=== PATIENT | female | born 1950 | race Caucasian/White ===

== ENCOUNTER 2018-01-03 18:50 | Inpatient (IN) | payer MEDICAID, OTHER ==
[2018-01-03] MEDS ORDERED: NS 1,000 ML IV ONE ×3 (18:58→21:41)
--- NOTE | 2018-01-03 18:59 | EDPHY ---
H & P Time Seen by Provider: 01/03/18 18:59 HPI/ROS: HPI CHIEF COMPLAINT: Possible urinary tract infection HISTORY OF PRESENT ILLNESS: Patient is a 67-year-old female presents emergency room by EMS for concern for sepsis and urinary tract infection. She had blood work at her care facility and was noted to have a high white blood cell count concern for UTI. She presents emergency room with a fever to 100.9. Blood pressures in route that was 70s over 40s. The patient here denies any complaints. Past Medical History: Thyroid disease, breast CA, MS Past Surgical History: No recent surgery Social History: Resides at a care facility Family History: Noncontributory ROS REVIEW OF SYSTEMS: 10 Systems were reviewed and negative with the exception of the elements mentioned in the history of present illness. Exam Constitutional nontoxic triage nursing summary reviewed, vital signs reviewed, awake/alert. Eyes normal conjunctivae and sclera, EOMI, PERRLA. HENT normal inspection, atraumatic, moist mucus membranes, no epistaxis, neck supple/ no meningismus, no raccoon eyes. Respiratory clear to auscultation bilaterally, normal breath sounds, no respiratory distress, no wheezing. Cardiovascular rate normal, regular rhythm, no murmur, no edema, distal pulses normal. Gastrointestinal soft, non-tender, no rebound, no guarding, normal bowel sounds, no distension, no pulsatile mass. Genitourinary no CVA tenderness. Musculoskeletal no midline vertebral tenderness, full range of motion, no calf swelling, no tenderness of extremities, no meningismus, good pulses, neurovascularly intact. Skin pink, warm, & dry, no rash, skin atraumatic. Neurologic awake, alert and oriented x 3, AAOx3, moves all 4 extremities equally, motor intact, sensory intact, CN II-XII intact, normal cerebellar, normal vision, normal speech. Psychiatric normal mood/affect. Heme/Lymph/Immune no lymphadenopathy. Differential Diagnosis: Includes but is not limited to in a particular order dehydration, sepsis, UTI with sepsis, bacteremia, hypotension, septic shock Medical Decision Making: Plan for this patient IV establishment IV fluid bolus , full youth nutritional monitor, check UA, blood cultures, lactic acid, IV fluid bolus. Re-evaluation: 2001: Given this patient's elevated white blood cell count, fever, urinalysis which was a cath urine shows UTI, , and low blood pressure this concerning for sepsis. She has been aggressively hydrated with 2 L of fluid. Additionally urine cultures been sent, blood culture sent. Lactic acid 2. IV Rocephin. Patient need to be admitted the hospital. 2111: Spoke with the hospitalist service Dr. Méndez, agrees to admit the patient. Patient is hemodynamically stable here her blood pressures been close to 90 systolic with normal maps. She is not trended down. This time she does not need vasopressor support. She has received 2 L of fluid. Her lactic acid is 2 and under. Rocephin is given for UTI. Urine culture and blood culture sent. Patient has been ordered a 3rd L fluid do her blood pressure being 88/51. She has advance directives with her that says comfort measures only. Even though I discussed about central line placement for possible vasopressor support for blood pressure gets worse however she does not want a central line. I discussed this at length with her. Will give her 3rd L fluid and re-evaluate her. I have updated the hospitalist service Dr. Méndez, patient declines central line. Source: Patient, EMS Constitutional: Initial Vital Signs Temperature (C) 38.3 C 01/03/18 19:01 Heart Rate 76 01/03/18 19:01 Respiratory Rate 12 01/03/18 19:01 Blood Pressure 80/62 L 01/03/18 19:01 O2 Sat (%) 98 01/03/18 19:01 O2 Delivery Mode Nasal Cannula O2 (L/minute) 3 Allergies/Adverse Reactions: Penicillins Allergy (Verified 12/06/10 12:11) povidone-iodine [From Betadine] Allergy (Verified 01/03/18 19:09) soap [From Betadine] Allergy (Verified 01/03/18 19:09) Home Medications: Medication Instructions Recorded Acetaminophen [Tylenol 325mg (*)] 650 mg PO Q6 PRN 01/03/18 Albuterol Sulfate [ALBUTEROL 1.25 mg IH Q6 PRN 01/03/18 SULFATE 1.25 MG/3 ML] Ascorbic Acid [Vitamin C 500 mg 500 mg PO DAILY 01/03/18 (*)] Bisacodyl [Dulcolax] 10 mg RC DAILY PRN 01/03/18 Brimonidine Tartrate [Brimonidine 1 drop EACHEYE BID 01/03/18 Tartrate] Butt Paste 1 applic TP TID 01/03/18 Docusate Sodium [Colace 100 MG (*)] 100 mg PO DAILY 01/03/18 Donepezil HCl [Aricept] 10 mg PO DAILY 01/03/18 Hydrocortisone 2.5% 1 hitesh TP BID PRN 01/03/18 [Hydrocortisone 2.5% cream (*)] Levothyroxine [Synthroid 75 mcg 75 mcg PO DAILY06 01/03/18 (*)] Magnesium Hydroxide [Milk of 30 ml PO DAILY PRN 01/03/18 Magnesia] Multivitamins [Multivitamin (*)] 1 each PO DAILY 01/03/18 Sennosides/Docusate Sodium 1 each PO DAILY 01/03/18 [Senna-S Tablet] Sod Phos,M-B/Na Phos,Di-Ba [Fleet 133 ml RC DAILY PRN 01/03/18 Enema] Timolol Maleate [Timolol Maleate] 1 drop EACHEYE BID 01/03/18 Travoprost [Travatan Z] 1 drop EACHEYE HS 01/03/18 guaiFENesin [Mucinex 600 MG (*)] 600 mg PO Q12 PRN 01/03/18 levOFLOXACIN [levAQUIN (*)] 750 mg PO DAILY 01/03/18 tiZANidine HCL [Zanaflex] 4 mg PO TID 01/03/18 Medical Decision Making - Data Points Laboratory Results: Laboratory Results 01/03/18 18:50 01/03/18 18:58 Microbiology Results: MICROBIOLOGY 01/03/18 19:33 Urine,Clean Catch Urine Culture - Preliminary Gram Neg Christian Nonlactose Ferm. 01/03/18 19:46 Blood Blood Culture - Preliminary Gram Negative Christian 01/03/18 19:10 Blood Blood Culture - Preliminary Gram Negative Christian 01/03/18 19:10 Blood Blood Panel (PCR) - Final Proteus Species Medications Given: Acetaminophen (Tylenol) 650 mg PO Q4HRS PRN PRN Reason: Pain, Mild/Fever, Can Take PO Stop: 07/02/18 22:43 Last Admin: 01/04/18 00:39 Dose: 650 mg Docusate Sodium (Colace) 100 mg PO DAILY JAMSHID Stop: 07/03/18 08:59 Last Admin: 01/04/18 09:09 Dose: Not Given Enoxaparin Sodium (Lovenox) 40 mg SC DAILY [facility] Stop: 07/03/18 08:59 Last Admin: 01/04/18 09:06 Dose: Not Given Levothyroxine Sodium (Synthroid) 75 mcg PO DAILY06 [facility] Stop: 07/03/18 05:59 Last Admin: 01/04/18 06:24 Dose: 75 mcg Miscellaneous Medication (Butt Paste) 1 applic TP TID [facility] Stop: 07/03/18 08:59 Last Admin: 01/04/18 15:32 Dose: Not Given Senna/Docusate Sodium (Senokot-S) 1 tab PO DAILY [facility] Stop: 07/03/18 08:59 Last Admin: 01/04/18 09:08 Dose: 1 tab Timolol Maleate (Timoptic 0.5%) 1 drops EACHEYE BID [facility] Stop: 07/03/18 08:59 Last Admin: 01/04/18 09:03 Dose: 1 drop Tizanidine HCl (Zanaflex) 4 mg PO TID [facility] Stop: 07/03/18 08:59 Last Admin: 01/04/18 15:22 Dose: 4 mg Discontinued Medications Brimonidine Tartrate (Alphagan 0.2%) 1 drops EACHEYE BID [facility] Stop: 07/03/18 08:59 Last Admin: 01/04/18 09:02 Dose: Not Given Donepezil HCl (Aricept) 10 mg PO DAILY [facility] Stop: 07/03/18 08:59 Last Admin: 01/04/18 09:07 Dose: Not Given Sodium Chloride (Ns) 1,000 mls @ 0 mls/hr IV EDNOW ONE; Wide Open PRN Reason: Protocol Stop: 01/03/18 18:59 Last Admin: 01/03/18 19:09 Dose: 1,000 mls Sodium Chloride (Ns) 1,000 mls @ 0 mls/hr IV ONCE ONE PRN Reason: Wide Open Stop: 01/03/18 19:17 Last Admin: 01/03/18 19:51 Dose: 1,000 mls Ceftriaxone Sodium/Dextrose (Rocephin 1 Gm (Premix)) 50 mls @ 100 mls/hr IV EDNOW ONE PRN Reason: Protocol Stop: 01/03/18 20:28 Last Admin: 01/03/18 20:06 Dose: 50 mls Sodium Chloride (Ns) 1,000 mls @ 0 mls/hr IV ONCE ONE PRN Reason: Wide Open Stop: 01/03/18 21:42 Last Admin: 01/03/18 21:47 Dose: 1,000 mls Sodium Chloride (Ns) 1,000 mls @ 150 mls/hr IV CONT JAMSHID Stop: 07/02/18 22:44 Last Admin: 01/04/18 05:33 Dose: 1,000 mls Departure - Departure Disposition: [facility] Inpatient Acute Clinical Impression: UTI (urinary tract infection) Qualifiers: Urinary tract infection type: acute cystitis Hematuria presence: with hematuria Qualified Code(s): N30.01 - Acute cystitis with hematuria Condition: Fair
[2018-01-03 19:19] LABS: PLATELET COUNT 161 10^3/uL (150-400)
[2018-01-03 19:24] LABS: INR 1.19 (0.83-1.16); PROTIME(PATIENT) 15.3 SEC (12.0-15.0)
[2018-01-03] MEDS ORDERED: ONDANSETRON DISINTEGRATING 4 MG TAB PO PRN (22:44)
[2018-01-03] MEDS ORDERED: ONDANSETRON 4 MG/2 ML VIAL IVP PRN (22:44)
--- NOTE | 2018-01-03 22:47 | PDGENHP ---
History and Physical - Chief Complaint suspected UTI - History of Present Illness 67 yo female with h/o MS, who is wheelchair bound and lives at [facility] presents to ED via EMS due to concern for UTI and sepsis. She denies fevers, but notes chills. She denies urinary symptoms such as dysuria, frequency or urgency, noting she is incontinent. No abdominal pain, back pain, nausea or vomiting. She denies CP, SOB or cough. In the ED, she met criteria for sepsis and UA suspicious for UTI. She received NS fluid bolus and IV Ceftriaxone. She is admitted for further management. History Information - Allergies/Home Medication List Allergies/Adverse Reactions: Penicillins Allergy (Verified 12/06/10 12:11) povidone-iodine [From Betadine] Allergy (Verified 01/03/18 19:09) soap [From Betadine] Allergy (Verified 01/03/18 19:09) Home Medications: Acetaminophen [Tylenol 325mg (*)] 650 mg PO Q6 PRN 01/03/18 [Last Taken Unknown] Albuterol Sulfate [ALBUTEROL SULFATE 1.25 MG/3 ML] 1.25 mg IH Q6 PRN 01/03/18 [ Last Taken Unknown] Ascorbic Acid [Vitamin C 500 mg (*)] 500 mg PO DAILY 01/03/18 [Last Taken Unknown] Bisacodyl [Dulcolax] 10 mg RC DAILY PRN 01/03/18 [Last Taken Unknown] Brimonidine Tartrate [Brimonidine Tartrate] 1 drop EACHEYE BID 01/03/18 [Last Taken Unknown] Butt Paste 1 applic TP TID 01/03/18 [Last Taken Unknown] Docusate Sodium [Colace 100 MG (*)] 100 mg PO DAILY 01/03/18 [Last Taken Unknown ] Donepezil HCl [Aricept] 10 mg PO DAILY 01/03/18 [Last Taken Unknown] Hydrocortisone 2.5% [Hydrocortisone 2.5% cream (*)] 1 hitesh TP BID PRN 01/03/18 [ Last Taken Unknown] Levothyroxine [Synthroid 75 mcg (*)] 75 mcg PO DAILY06 01/03/18 [Last Taken Unknown] Magnesium Hydroxide [Milk of Magnesia] 30 ml PO DAILY PRN 01/03/18 [Last Taken Unknown] Multivitamins [Multivitamin (*)] 1 each PO DAILY 01/03/18 [Last Taken Unknown] Sennosides/Docusate Sodium [Senna-S Tablet] 1 each PO DAILY 01/03/18 [Last Taken Unknown] Sod Phos,M-B/Na Phos,Di-Ba [Fleet Enema] 133 ml RC DAILY PRN 01/03/18 [Last Taken Unknown] Timolol Maleate [Timolol Maleate] 1 drop EACHEYE BID 01/03/18 [Last Taken Unknown] Travoprost [Travatan Z] 1 drop EACHEYE HS 01/03/18 [Last Taken Unknown] guaiFENesin [Mucinex 600 MG (*)] 600 mg PO Q12 PRN 01/03/18 [Last Taken Unknown] levOFLOXACIN [levAQUIN (*)] 750 mg PO DAILY 01/03/18 [Last Taken 01/03/18] tiZANidine HCL [Zanaflex] 4 mg PO TID 01/03/18 [Last Taken Unknown] I have personally reviewed and updated: family history, medical history, social history, surgical history - Past Medical History Additional medical history: MS, wheelchair bound. Hypothyroidism - Surgical History Reports: no pertinent surgical hx - Family History Positive for: non-pertinent - Social History Smoking Status: Former smoker Alcohol Use: None Drug Use: None Additional social history: Lives at [facility]. MOLST form states DNR / comfort. Review of Systems Review of Systems: ROS: 10pt was reviewed & negative except for what was stated in HPI & below Physical Exam Physical Exam: Temp Pulse Resp BP Pulse Ox 38.3 C 119 H 18 88/51 L 98 01/03/18 19:01 01/03/18 22:32 01/03/18 22:32 01/03/18 22:32 01/03/18 22:32 O2 (L/minute) 3 Constitutional: no apparent distress Eyes: PERRL Ears, Nose, Mouth, Throat: moist mucous membranes Cardiovascular: regular rate and rhythym, no murmur, rub, or gallop Respiratory: no respiratory distress, clear to auscultation Gastrointestinal: normoactive bowel sounds, soft, non-tender abdomen Skin: warm Musculoskeletal: generalized weakness Neurologic: AAOx3 Psychiatric: interacting appropriately Lab Data & Imaging Review 01/03/18 18:50 01/03/18 18:58 WBC 14.55 10^3/uL (3.80-9.50) H 01/03/18 18:50 RBC 4.27 10^6/uL (4.18-5.33) 01/03/18 18:50 Hgb 12.7 g/dL (12.6-16.3) 01/03/18 18:50 Hct 38.6 % (38.0-47.0) 01/03/18 18:50 MCV 90.4 fL (81.5-99.8) 01/03/18 18:50 MCH 29.7 pg (27.9-34.1) 01/03/18 18:50 MCHC 32.9 g/dL (32.4-36.7) 01/03/18 18:50 RDW 13.8 % (11.5-15.2) 01/03/18 18:50 Plt Count 161 10^3/uL (150-400) 01/03/18 18:50 MPV 10.6 fL (8.7-11.7) 01/03/18 18:50 Neut % (Auto) 92.6 % (39.3-74.2) H 01/03/18 18:50 Lymph % (Auto) 2.7 % (15.0-45.0) L 01/03/18 18:50 [place] % (Auto) 4.1 % (4.5-13.0) L 01/03/18 18:50 Eos % (Auto) 0.0 % (0.6-7.6) L 01/03/18 18:50 Baso % (Auto) 0.1 % (0.3-1.7) L 01/03/18 18:50 Nucleat RBC Rel Count 0.0 % (0.0-0.2) 01/03/18 18:50 Absolute Neuts (auto) 13.47 10^3/uL (1.70-6.50) H 01/03/18 18:50 Absolute Lymphs (auto) 0.39 10^3/uL (1.00-3.00) L 01/03/18 18:50 Absolute Monos (auto) 0.59 10^3/uL (0.30-0.80) 01/03/18 18:50 Absolute Eos (auto) 0.00 10^3/uL (0.03-0.40) L 01/03/18 18:50 Absolute Basos (auto) 0.02 10^3/uL (0.02-0.10) 01/03/18 18:50 Absolute Nucleated RBC 0.00 10^3/uL (0-0.01) 01/03/18 18:50 Immature Gran % 0.5 % (0.0-1.1) 01/03/18 18:50 Immature Gran # 0.08 10^3/uL (0.00-0.10) 01/03/18 18:50 Platelet Estimate ADEQUATE (ADEQ) 01/03/18 18:50 PT 15.3 SEC (12.0-15.0) H 01/03/18 18:50 INR 1.19 (0.83-1.16) H 01/03/18 18:50 APTT 28.4 SEC (23.0-38.0) 01/03/18 18:50 VBG Lactic Acid 2.0 mmol/L (0.7-2.1) 01/03/18 18:50 Sodium 136 mEq/L (135-145) 01/03/18 18:58 Potassium 4.3 mEq/L (3.3-5.0) 01/03/18 18:58 Chloride 101 mEq/L (97-110) 01/03/18 18:58 Carbon Dioxide 25 mEq/l (22-31) 01/03/18 18:58 Anion Gap 10 mEq/L (8-16) 01/03/18 18:58 BUN 34 mg/dL (7-23) H 01/03/18 18:58 Creatinine 1.3 mg/dL (0.6-1.0) H 01/03/18 18:58 Estimated GFR 41 01/03/18 18:58 Glucose 106 mg/dL (70-100) H 01/03/18 18:58 Calcium 9.0 mg/dL (8.5-10.4) 01/03/18 18:58 Magnesium 2.1 mg/dL (1.6-2.3) 01/03/18 18:58 Total Bilirubin 0.5 mg/dL (0.1-1.4) 01/03/18 18:58 Conjugated Bilirubin 0.2 mg/dL (0.0-0.5) 01/03/18 18:58 Unconjugated Bilirubin 0.3 mg/dL (0.0-1.1) 01/03/18 18:58 AST 44 IU/L (14-46) 01/03/18 18:58 ALT 42 IU/L (9-52) 01/03/18 18:58 Alkaline Phosphatase 149 IU/L (38-126) H 01/03/18 18:58 Total Protein 6.1 g/dL (6.3-8.2) L 01/03/18 18:58 Albumin 3.2 g/dL (3.5-5.0) L 01/03/18 18:58 Urine Color YELLOW 01/03/18 19:33 Urine Appearance MODERATELY TURBID 01/03/18 19:33 Urine pH 6.0 (5.0-7.5) 01/03/18 19:33 Ur Specific Bard 1.015 (1.002-1.030) 01/03/18 19:33 Urine Protein 1+ (NEGATIVE) H 01/03/18 19:33 Urine Ketones 1+ (NEGATIVE) H 01/03/18 19:33 Urine Blood 3+ (NEGATIVE) H 01/03/18 19:33 Urine Nitrate NEGATIVE (NEGATIVE) 01/03/18 19:33 Urine Bilirubin NEGATIVE (NEGATIVE) 01/03/18 19:33 Urine Urobilinogen NEGATIVE EU (0.2-1.0) 01/03/18 19:33 Ur Leukocyte Esterase 2+ (NEGATIVE) H 01/03/18 19:33 Urine RBC 25-50 /hpf (0-3) H 01/03/18 19:33 Urine WBC 50-182 /hpf (0-3) H 01/03/18 19:33 Ur Epithelial Cells TRACE /lpf (NONE-1+) 01/03/18 19:33 Urine Bacteria TRACE /hpf (NONE SEEN) H 01/03/18 19:33 Urine Mucus TRACE /lpf (NONE-1+) 01/03/18 19:33 Urine Glucose NEGATIVE (NEGATIVE) 01/03/18 19:33 Assessment & Plan Assessment: Sepsis 2/2 UTI - (HR, leukocytosis, hypotension), normal lactate. S/P 30 cc/kg NS fluid bolus. Per pt's goals of care, she is DNR / comfort. She is agreeable to IV atbx and IVF's, but declines a central line or pressors. -IV Ceftriaxone -Follow culture data -Cont IVF's -no central line, pressors or aggressive interventions RONNIE - likely pre-renal in setting of sepsis -cont IVF's, follow MS - not currently on treatment, she is wheelchair bound, lives at SNF -cont zanaflex -PT/OT Hypothyroidism - cont levothyroxine DVT PPLX - Lovenox Dispo - inpt, anticipate >48 hrs hospitalization for management of sepsis/UTI Code status - pt has MOLST which states DNR/comfort measures. She acknowledges she would like atbx and IVF's, but no escalation of care.
[2018-01-03] MEDS ORDERED: BISACODYL 10 MG SUPP PR PRN (22:48)
[2018-01-03] MEDS ORDERED: guaiFENesin 600 MG TAB.ER PO PRN (22:48)
[2018-01-03] MEDS ORDERED: SODIUM PHOSPHATE MONOBASIC RC PRN (22:48)
[2018-01-03] MEDS ORDERED: SODIUM PHOSPHATE DIBASIC RC PRN (22:48)
[2018-01-03] MEDS ORDERED: MAGNESIUM HYDROXIDE 30 ML UDCUP PO PRN (22:48)
[2018-01-03] MEDS ORDERED: HYDROCORTISONE 2.5% 30 GM CRTUBE TP PRN (22:48)
[2018-01-03] MEDS ORDERED: ALBUTEROL 3 ML DEYVIAL IH PRN (23:30)
[2018-01-03] MEDS: NS 1,000 ML IV SCH (23:42)
[2018-01-04] MEDS: ACETAMINOPHEN 325 MG TAB PO PRN ×2 (00:39→16:20)
[2018-01-04 05:16] LABS: PLATELET COUNT 132 10^3/uL (150-400)
[2018-01-04] MEDS: NS 1,000 ML IV SCH (05:33)
[2018-01-04] MEDS: LEVOTHYROXINE 75 MCG TAB PO SCH (06:24)
--- NOTE | 2018-01-04 08:03 | HOSPPROG ---
Hospitalist Progress Note Assessment/Plan: * UTI with sepsis -continue IV ceftriaxone pending cultures * ARF - improved with IVF * MS -wheelchair bound -continue Zanaflex * h/o breast cancer Goals of care - DNR, no aggressive intervention such as central line/pressors Transfer to med/surg Subjective: Feels much better, incontinent of urine and stool, wears depends Objective: Vital Signs Temp Pulse Resp BP Pulse Ox 37.3 C 83 17 122/62 H 95 01/04/18 07:57 01/04/18 07:42 01/04/18 07:42 01/04/18 07:42 01/04/18 07:42 Laboratory Results 01/04/18 05:02 01/04/18 05:02 01/03/18 01/04/18 01/05/18 05:59 05:59 05:59 Intake Total 3894 Output Total 590 Balance 3304 PT 15.3 SEC (12.0-15.0) H 01/03/18 18:50 INR 1.19 (0.83-1.16) H 01/03/18 18:50 CXR viewed, my personal interpretation is - no PNA tele reviewed - NSR - Physical Exam Constitutional: no apparent distress, appears nourished, not in pain Cardiovascular: regular rate and rhythym, no murmur, rub, or gallop Respiratory: no respiratory distress, no rales or rhonchi, clear to auscultation Gastrointestinal: normoactive bowel sounds, soft, non-tender abdomen, no palpable masses Skin: no rashes or abrasions, no fluctuance, no induration Neurologic: AAOx3, weakness, CN II-XII Intact, No facial droop Psychiatric: interacting appropriately, not anxious, not encephalopathic, thought process linear ICD10 Worksheet Patient Problems: Problems Problem Status Onset UTI (urinary tract infection) Acute
--- NOTE | 2018-01-04 08:16 | PDMN ---
Medical Necessity Medical necessity: M160 sepsis and other febrile illness: M300 UTI: HR, leukocytosis, hypotension, pt with hx of MS is wheelchair bound, lives at SNF, anticipate > 2 MN ongoing med nec care, eval and tx IV abx, IVF.
[2018-01-04] MEDS ORDERED: DONEPEZIL HCL 5 MG TAB PO SCH (09:00)
[2018-01-04] MEDS ORDERED: BRIMONIDINE 0.2% 5 ML OPHT.BTL EACHEYE SCH (09:00)
[2018-01-04] MEDS: TIMOLOL 0.5% 15 ML OPHT.BTL EACHEYE SCH ×2 (09:03→21:03)
[2018-01-04] MEDS: ENOXAPARIN 40 MG/0.4 ML SYR SC SCH (09:06)
[2018-01-04] MEDS: SENNOSIDES/DOCUSATE SODIUM TAB PO SCH (09:08)
[2018-01-04] MEDS: DOCUSATE SODIUM 100 MG CAP PO SCH (09:09)
[2018-01-04] MEDS: AQUAPHOR TP SCH ×3 (09:10→21:04)
[2018-01-04] MEDS: BUTT PASTE TP SCH ×3 (09:10→21:04)
[2018-01-04] MEDS: MAALOX TP SCH ×3 (09:10→21:04)
--- NOTE | 2018-01-04 14:24 | ASMTCASEMG ---
Living Arrangements What is your living Answers: With Other (Not Family) arrangement? Who do you live with? Type Of Residence What kind of residence do Answers: Detention Facility you live in? Type of Residence Facility Name Notes: [facility] Discharge Plan Comments Coordination Status Comments Notes: Patient is a 67yo disabled female who lives at [facility] and presents to ED via EMS due to concern for UTI and sepsis. Patient has MS but is not currently on treatment for it. Patient was admitted for sepsis. OT has been ordered for patient. D/C needs TBD. CM will follow. Date Signed: 01/04/2018 02:23 PM Electronically Signed By:Nancy Nowak LCSW
[2018-01-04] MEDS: DONEPEZIL HCL 5 MG TAB PO SCH (21:03)
[2018-01-04] MEDS: TRAVOPROST Z 0.004% 2.5 ML OPHT.BTL EACHEYE SCH (21:03)
[2018-01-05 04:32] LABS: PLATELET COUNT 127 10^3/uL (150-400)
[2018-01-05] MEDS: LEVOTHYROXINE 75 MCG TAB PO SCH (06:20)
[2018-01-05] MEDS: ACETAMINOPHEN 325 MG TAB PO PRN (07:53)
[2018-01-05] MEDS: SENNOSIDES/DOCUSATE SODIUM TAB PO SCH (07:53)
[2018-01-05] MEDS: DOCUSATE SODIUM 100 MG CAP PO SCH (07:53)
[2018-01-05] MEDS: ENOXAPARIN 40 MG/0.4 ML SYR SC SCH (07:54)
[2018-01-05] MEDS: TIMOLOL 0.5% 15 ML OPHT.BTL EACHEYE SCH ×2 (08:00→21:00)
--- NOTE | 2018-01-05 09:37 | HOSPPROG ---
Hospitalist Progress Note Assessment/Plan: 67 yo F w sepsis, uti, gnr bacteremia sepsis: septic physiology has resolved UTI -continue IV ceftriaxone pending cultures ceftriaxone sens e coli RONNIE- improved with IVF MS -wheelchair bound -continue Zanaflex hicks: remove today h/o breast cancer constipation: chronic issue daily miralax proph: lmwh Goals of care - DNR, no aggressive intervention such as central line/pressors Transfer to med/surg Subjective: case d/w dr aguilar Objective: Vital Signs Temp Pulse Resp BP Pulse Ox 38.2 C 95 16 144/82 H 91 L 01/05/18 07:47 01/05/18 07:47 01/05/18 07:47 01/05/18 07:47 01/05/18 07:47 Laboratory Results 01/05/18 04:14 01/05/18 04:14 01/04/18 01/05/18 01/06/18 05:59 05:59 05:59 Intake Total 3894 875 Output Total 590 800 Balance 3304 75 PT 15.3 SEC (12.0-15.0) H 01/03/18 18:50 INR 1.19 (0.83-1.16) H 01/03/18 18:50 - Physical Exam Constitutional: no apparent distress, appears nourished, other (flat affect) Eyes: PERRL, anicteric sclera Ears, Nose, Mouth, Throat: moist mucous membranes, hearing normal Cardiovascular: regular rate and rhythym, no murmur, rub, or gallop Respiratory: no respiratory distress, no rales or rhonchi Gastrointestinal: normoactive bowel sounds, soft, non-tender abdomen Genitourinary: no bladder fullness, hicks in urethra Skin: warm, normal color Musculoskeletal: full muscle strength, no muscle tenderness Neurologic: AAOx3 Psychiatric: interacting appropriately ICD10 Worksheet Patient Problems: Problems Problem Status Onset UTI (urinary tract infection) Acute
[2018-01-05] MEDS: POLYETHYLENE GLYCOL 3350 17 GM PKT PO SCH (10:40)
[2018-01-05] MEDS: AQUAPHOR TP SCH ×3 (10:40→23:30)
[2018-01-05] MEDS: MAALOX TP SCH ×3 (10:40→23:30)
[2018-01-05] MEDS: BUTT PASTE TP SCH ×3 (10:40→23:30)
--- NOTE | 2018-01-05 11:02 | GCON ---
INFECTIOUS DISEASE CONSULTATION DATE OF CONSULTATION: 01/05/2018 REFERRING PHYSICIAN: Mayra Thornton MD REASON FOR CONSULTATION: Proteus bacteremia. HISTORY OF PRESENT ILLNESS: The patient is a 67-year-old female with a past medical history of multi ple sclerosis, whom I am asked to see in consultation for Proteus bacteremia. The patient lives at [facility] and notes that she was sitting in the sun last weekend and often feels like this precipitat es worsening of her multiple sclerosis. She subsequently had progressive fatigue. She describes hav ing blood testing performed which showed a leukocytosis and concern for urinary tract infection. She was started empirically on levofloxacin. She did not describe having fever or chills. She is incon tinent and uses a diaper and notes that since she has been incontinent, she has not been able to sens e dysuria. She does describe urinary urgency, but says this is not change from her baseline. She is unclear if she has had urinary frequency. She denies any flank pain. Based on her clinical course, she was ultimately brought to the emergency department where she was noted to have a white blood juan l count of 14,000 and ultimately a temperature peaking at 39.5. She was started empirically on ceftr iaxone 1 g IV daily. A urinalysis showed 25 to 50 red blood cells and 50 to 182 white blood cells. Blood and urine cultures are both showing growth of Proteus mirabilis. She has had persistent fevers since hospitalization, although these are lower grade in nature. She does not have any ongoing urin corwin symptoms and did have Virk catheter placement in the emergency department. She denies associate d nausea, vomiting or diarrhea. Given the above findings, I am now asked to assist in her ongoing ma nagement. PAST MEDICAL HISTORY: Multiple sclerosis, urinary tract infection, hypothyroidism, metastatic breast cancer. PAST SURGICAL HISTORY: Lumpectomy. CURRENT MEDICATIONS: Ceftriaxone 1 g IV daily, Aricept 10 mg p.o. at bedtime, Lovenox 40 mg subcutan eous daily, Mucinex 600 mg every 12 hours as needed, Synthroid 75 mcg p.o. daily, Zanaflex 4 mg p.o. three times daily. ALLERGIES: Penicillin associated with hives. SOCIAL HISTORY: Patient is a former smoker. No alcohol use. She resides at [facility]. FAMILY HISTORY: Coronary artery disease. REVIEW OF SYSTEMS: Outside that noted in the HPI, remainder of 10-system review is unremarkable. PHYSICAL EXAMINATION: VITAL SIGNS: Temperature 38.2, heart rate 95, respiratory rate 16, blood pres sure 144/82, oxygen saturation 91% on room air. GENERAL: Patient is chronically ill appearing in no acute distress. She appears nontoxic. HEENT: There is no scleral icterus, conjunctival injection, or conjunctival petechiae. Oropharynx shows moist mucous membranes with no thrush. Dentition is in fair repair. There is no nasal discharge. There is no tenderness over the sinuses. NECK: Supple without lymphadenopathy or thyromegaly. CHEST: Clear to auscultation bilaterally without adventitio us sounds. The respiratory effort is normal. CARDIOVASCULAR: Regular rate and rhythm without murmu rs, gallops, or rubs. ABDOMEN: Soft, nontender, nondistended. There is no palpable organomegaly. BACK: No CVA tenderness bilaterally. MUSCULOSKELETAL: There are contractures present. No cyanosis , clubbing, or edema. SKIN: No stigmata of endocarditis. The skin is warm to touch diffusely. GARRY ROLOGIC: Patient is alert and interacts appropriately with examiner. She has dysconjugate gaze pres ent. LYMPHATICS: No cervical or supraclavicular nodes. LABORATORY DATA: White blood cell count 8.4, hematocrit 34.2, platelets 127, neutrophils 86%. Creat inine 0.7. AST 44, ALT 42, bilirubin 0.5, alkaline phosphatase 149. INR 1.2. Venous lactate 2.0. Urinalysis as noted previously. Blood cultures are showing growth of Proteus in 2 of 2 sets and urin e culture showing growth of greater than 100,000 Proteus mirabilis, which is fluoroquinolone resistan t. Chest x-ray shows bilateral lower lobe opacities suggestive of atelectasis. IMPRESSION: Sepsis due to Proteus bacteremia likely of urinary etiology given growth of Proteus on u rine culture and underlying multiple sclerosis with increasing risk of urinary retention: Isolate is susceptible to ceftriaxone. Will increase from 1 g to 2 g IV daily given bacteremia. Anticipate 10 to 14 day course of therapy. May take 3 to 5 days to see fever resolve. RECOMMENDATIONS: 1. Increase ceftriaxone to 2 g IV daily. 2. Follow clinical course with antibiotic therapy. 3. Plan 10 to 14 day course of antibiotics. Thank you for this consultation. We will continue to follow the patient with you. /[id number]/MODL
[2018-01-05] MEDS: DONEPEZIL HCL 5 MG TAB PO SCH (21:00)
[2018-01-05] MEDS: TRAVOPROST Z 0.004% 2.5 ML OPHT.BTL EACHEYE SCH (21:01)
[2018-01-06] MEDS: LEVOTHYROXINE 75 MCG TAB PO SCH (06:18)
[2018-01-06] MEDS: SENNOSIDES/DOCUSATE SODIUM TAB PO SCH (08:09)
[2018-01-06] MEDS: POLYETHYLENE GLYCOL 3350 17 GM PKT PO SCH (08:10)
[2018-01-06] MEDS: ENOXAPARIN 40 MG/0.4 ML SYR SC SCH (08:10)
[2018-01-06] MEDS: DOCUSATE SODIUM 100 MG CAP PO SCH (08:10)
[2018-01-06] MEDS: TIMOLOL 0.5% 15 ML OPHT.BTL EACHEYE SCH ×2 (08:20→20:36)
[2018-01-06] MEDS: AQUAPHOR TP SCH ×3 (08:51→23:00)
[2018-01-06] MEDS: MAALOX TP SCH ×3 (08:51→23:00)
[2018-01-06] MEDS: BUTT PASTE TP SCH ×3 (08:51→23:00)
[2018-01-06] MEDS ORDERED: ALTEPLASE 2 MG VIAL IVP PRN (10:08)
--- NOTE | 2018-01-06 10:08 | HOSPPROG ---
Hospitalist Progress Note Assessment/Plan: 67 yo F w sepsis, uti, gnr bacteremia sepsis: septic physiology has resolved UTI -continue IV ceftriaxone pending cultures ceftriaxone sens proteus bacteremia: 2/2 UTI no need for repeat cultures given gm neg and clinical improvement picc line today RONNIE- improved with IVF MS -wheelchair bound -continue Zanaflex hicks: remove today h/o breast cancer constipation: chronic issue daily miralax proph: lmwh Goals of care - DNR, no aggressive intervention such as central line/pressors Transfer to med/surg Subjective: case d/w dr magana. afebrile. moving bowels Objective: Vital Signs Temp Pulse Resp BP Pulse Ox 37.5 C 79 16 131/71 H 90 L 01/06/18 07:16 01/06/18 07:16 01/06/18 07:16 01/06/18 07:16 01/06/18 07:16 Laboratory Results 01/05/18 04:14 01/05/18 04:14 01/05/18 01/06/18 01/07/18 05:59 05:59 05:59 Intake Total 875 450 Output Total 800 650 600 Balance 75 -200 -600 PT 15.3 SEC (12.0-15.0) H 01/03/18 18:50 INR 1.19 (0.83-1.16) H 01/03/18 18:50 - Physical Exam Constitutional: no apparent distress, appears nourished Eyes: PERRL, anicteric sclera Ears, Nose, Mouth, Throat: moist mucous membranes, hearing normal Cardiovascular: regular rate and rhythym, no murmur, rub, or gallop Respiratory: no respiratory distress, no rales or rhonchi Gastrointestinal: normoactive bowel sounds, soft, non-tender abdomen Genitourinary: no bladder fullness, No hicks in urethra Skin: warm, normal color Musculoskeletal: full muscle strength Neurologic: AAOx3 Psychiatric: interacting appropriately Lymph, Heme, Immunologic: no cervical LAD ICD10 Worksheet Patient Problems: Problems Problem Status Onset UTI (urinary tract infection) Acute
--- NOTE | 2018-01-06 14:52 | PCMIDPN ---
Assessment/Plan: Assessment: Proteus bacteremia and sepsis secondary to urinary source. Patient with underlying multiple sclerosis and is at risk for urinary tract infections and ascending septic events due to this. Patient is being managed on IV ceftriaxone which her isolate is sensitive to. She is tolerating this very well. Plan is to have her transfer back to the senior living facility on a total of a 2 week course of this treatment. Plan: 1. Continue IV ceftriaxone 2 g daily. 2. Duration of 14 days from treatment initiation. 3. Follow clinical course. Discharge back to senior living facility when appropriate. 01/06/18 14:50 Subjective: Patient is resting comfortably in her hospital bed. She is more alert and interactive. She relates that she feels much better. Tolerating ceftriaxone without complaint. No rash or diarrhea. Objective: Ceftriaxone # 2 Vital Signs Temp Pulse Resp BP Pulse Ox 37.5 C 79 16 131/71 H 90 L 01/06/18 07:16 01/06/18 07:16 01/06/18 07:16 01/06/18 07:16 01/06/18 07:16 Laboratory Results 01/05/18 04:14 01/05/18 04:14 01/05/18 01/06/18 01/07/18 05:59 05:59 05:59 Intake Total 875 450 Output Total 800 650 600 Balance 75 -200 -600 - Physical Exam General Appearance: WD/WN, alert, no apparent distress, non-toxic Respiratory: lungs clear, normal breath sounds, No respiratory distress Cardiac/Chest: regular rate, rhythm, No tachycardia Skin: normal color, warm/dry, No rash Neuro/Psych: alert, normal mood/affect, oriented x 3 ICD10 Worksheet Patient Problems: Problems Problem Status Onset UTI (urinary tract infection) Acute
--- NOTE | 2018-01-06 14:57 | ASMTCMCOM ---
CM Note CM Note Notes: Pt lives at [facility], with advanced MS and is dependent for all ADLs. Pt admitted for UTI. OT and TITLE SUPERVISOR are recommending return to SNF. Referral has been sent to [facility] and they have accepted. Discharge date unknown at this time. CM to follow. D/C Plan: Return to [facility] Date Signed: 01/06/2018 02:52 PM Electronically Signed By:Meliza Carballo
[2018-01-06] MEDS: DONEPEZIL HCL 5 MG TAB PO SCH (20:34)
[2018-01-06] MEDS: TRAVOPROST Z 0.004% 2.5 ML OPHT.BTL EACHEYE SCH (20:36)
[2018-01-07] MEDS: LEVOTHYROXINE 75 MCG TAB PO SCH (04:11)
[2018-01-07 07:50] VITALS: BP 153/74
[2018-01-07] MEDS: SENNOSIDES/DOCUSATE SODIUM TAB PO SCH (08:13)
[2018-01-07] MEDS: DOCUSATE SODIUM 100 MG CAP PO SCH (08:14)
[2018-01-07] MEDS: POLYETHYLENE GLYCOL 3350 17 GM PKT PO SCH (08:14)
[2018-01-07] MEDS: ENOXAPARIN 40 MG/0.4 ML SYR SC SCH (08:14)
[2018-01-07] MEDS: BUTT PASTE TP SCH (08:33)
[2018-01-07] MEDS: AQUAPHOR TP SCH (08:33)
[2018-01-07] MEDS: MAALOX TP SCH (08:33)
[2018-01-07] MEDS: TIMOLOL 0.5% 15 ML OPHT.BTL EACHEYE SCH (08:34)
--- NOTE | 2018-01-07 09:48 | HOSPPROG ---
Hospitalist Progress Note Assessment/Plan: 67 yo F w sepsis, uti, gnr bacteremia sepsis: septic physiology has resolved UTI -continue IV ceftriaxone pending cultures ceftriaxone sens proteus bacteremia: 2/2 UTI no need for repeat cultures given gm neg and clinical improvement picc line today RONNIE- improved with IVF MS -wheelchair bound -continue Zanaflex hicks: remove today h/o breast cancer constipation: chronic issue daily miralax proph: lmwh [facility] 30 minutes on dc Subjective: afebrile. ready for [facility] to [facility]. has picc Objective: Vital Signs Temp Pulse Resp BP Pulse Ox 37.1 C 84 16 153/74 H 90 L 01/07/18 07:49 01/07/18 07:49 01/07/18 07:49 01/07/18 07:49 01/07/18 07:49 Laboratory Results 01/05/18 04:14 01/05/18 04:14 01/06/18 01/07/18 01/08/18 05:59 05:59 05:59 Intake Total 450 400 Output Total 650 1150 Balance -200 -750 PT 15.3 SEC (12.0-15.0) H 01/03/18 18:50 INR 1.19 (0.83-1.16) H 01/03/18 18:50 - Physical Exam Constitutional: no apparent distress, appears nourished Eyes: PERRL, anicteric sclera Ears, Nose, Mouth, Throat: moist mucous membranes, hearing normal Cardiovascular: regular rate and rhythym, no murmur, rub, or gallop Respiratory: no respiratory distress, no rales or rhonchi Gastrointestinal: normoactive bowel sounds, soft, non-tender abdomen Genitourinary: No hicks in urethra Skin: warm, normal color Musculoskeletal: No full muscle strength Neurologic: AAOx3 Psychiatric: interacting appropriately ICD10 Worksheet Patient Problems: Problems Problem Status Onset UTI (urinary tract infection) Acute
--- NOTE | 2018-01-07 09:56 | PDIAF ---
- Diagnosis Diagnosis: Proteus bacteremia due to urinary source Code Status: Do Not Resuscitate - Medication Management Discharge Medications: Medications to Continue on Transfer Acetaminophen [Tylenol 325mg (*)] 650 mg PO Q6 PRN 01/03/18 [Last Taken Unknown] Albuterol Sulfate [ALBUTEROL SULFATE 1.25 MG/3 ML] 1.25 mg IH Q6 PRN 01/03/18 [ Last Taken Unknown] Ascorbic Acid [Vitamin C 500 mg (*)] 500 mg PO DAILY 01/03/18 [Last Taken Unknown] Bisacodyl [Dulcolax] 10 mg RC DAILY PRN 01/03/18 [Last Taken Unknown] Brimonidine Tartrate 1 drop EACHEYE BID 01/03/18 [Last Taken Unknown] Butt Paste 1 applic TP TID 01/03/18 [Last Taken Unknown] Docusate Sodium [Colace 100 MG (*)] 100 mg PO DAILY 01/03/18 [Last Taken Unknown ] Donepezil HCl [Aricept] 10 mg PO DAILY 01/03/18 [Last Taken Unknown] Hydrocortisone 2.5% [Hydrocortisone 2.5% cream (*)] 1 hitesh TP BID PRN 01/03/18 [ Last Taken Unknown] Levothyroxine [Synthroid 75 mcg (*)] 75 mcg PO DAILY06 01/03/18 [Last Taken Unknown] Magnesium Hydroxide [Milk of Magnesia] 30 ml PO DAILY PRN 01/03/18 [Last Taken Unknown] Multivitamins [Multivitamin (*)] 1 each PO DAILY 01/03/18 [Last Taken Unknown] Sennosides/Docusate Sodium [Senna-S Tablet] 1 each PO DAILY 01/03/18 [Last Taken Unknown] Sod Phos,M-B/Na Phos,Di-Ba [Fleet Enema] 133 ml RC DAILY PRN 01/03/18 [Last Taken Unknown] Timolol Maleate 1 drop EACHEYE BID 01/03/18 [Last Taken Unknown] Travoprost [Travatan Z] 1 drop EACHEYE HS 01/03/18 [Last Taken Unknown] guaiFENesin [Mucinex 600 MG (*)] 600 mg PO Q12 PRN 01/03/18 [Last Taken Unknown] tiZANidine HCL [Zanaflex] 4 mg PO TID 09/25/18 [Last Taken Unknown] Polyethylene Glycol 3350 [Miralax 17 gm (*)] 17 gm PO DAILY pkt 01/07/18 [Last Taken Unknown] cefTRIAXone [Rocephin] 2 gm IV DAILY vial 01/07/18 [Last Taken Unknown] Electric Frying Pan Repairer Antibiotics: Ceftriaxone 2 g IV Q 24 hr Senior Living Antibiotic Stop Date: 01/17/18 Discharge Medications: Refer to the Discharge Home Medication list for PRN reason. PICC Care - Routine: Yes - Orders Diet Texture: Regular Texture Diet, Thin Liquids, Meds Whole w/Liquids - Labs/Radiology CBC w/diff Date: 01/09/18 (Weekly Q Tuesday) CMP Date: 01/09/18 (Weekly Q Tuesday) Call or Fax Lab and Imaging Results to: Dr. Garcia, - Follow Up Care Current Providers and Referrals: WILDER FARIA [Other] - As per Instructions
--- NOTE | 2018-01-07 10:03 | ASMTDCNOTE ---
Case Management Discharge Discharge Order Complete? Answers: Yes Patient to Obtain Answers: Other Notes: [facility] Medications Transportation Arranged Answers: Other Notes: [place] via [facility] Transport will Pick (Date 01/07/2018 01:15 PM & Time) Faxed Final Orders Answers: Yes Discharge Comments Notes: Patient discharged to her home at [facility]. Transport arranged by [facility] at . Orders sent. KELLEN Alejandro will call report. Date Signed: 01/07/2018 10:03 AM Electronically Signed By:Lenora Pete RN
--- NOTE | 2018-01-07 10:04 | ASMTLACE ---
LACE Length of stay for Answers: 4-6 days current admission Acuity / Level of Answers: Yes Care: Did the patient have an inpatient admission? Comorbidities - select Answers: Other Notes: Thyroid disease; MS all that apply # of Emergency department Answers: 1-2 visits in the last 6 months Score: 9 Date Signed: 01/07/2018 10:03 AM Electronically Signed By:Lenora Pete RN
--- NOTE | 2018-01-07 15:31 | ASDISCHSUM ---
Discharge Information Plan Status:SNF Medically Cleared to Leave: Discharge Date:01/07/2018 01:48 PM D/C Disposition:Jail Facility ADT D/C Disposition:Jail Facility Projected Discharge Date:01/07/2018 11:00 AM Transportation at D/C: Discharge Delay Reason: Follow-Up Date:01/07/2018 11:00 AM Discharge Slot: Final Diagnosis: Placement Information Referral Type:*Senior Living/SNF Referral ID:[id number] Provider Name:[facility] Address 1:[address] Address 2: City:[place] Selection Factors: State:[place] Patient Contact Information Contact Name:YE Relationship:Sister Address:[address] Work Phone: City:[place] Alternate Phone: State/Zip Code:[place] [address] Email: Financial Information Financial Class:Medicare Advantage Plans Primary Plan Desc:[facility] [employer] Primary Plan Number:[id number] Secondary Plan Desc: Secondary Plan Number: Assessment Information LACE LACE Length of stay for Answers: 4-6 days current admission Acuity / Level of Answers: Yes Care: Did the patient have an inpatient admission? Comorbidities - select Answers: Other Notes: Thyroid disease; MS all that apply # of Emergency department Answers: 1-2 visits in the last 6 months Score: 9 Date Signed: 01/07/2018 10:03 AM Electronically Signed By:Lenora Pete RN [facility] Initial CM Assessment Living Arrangements What is your living Answers: With Other (Not Family) arrangement? Who do you live with? Type Of Residence What kind of residence do Answers: Jail Facility you live in? Type of Residence Facility Name Notes: [facility] Discharge Plan Comments Coordination Status Comments Notes: Patient is a 67yo disabled female who lives at [facility] and presents to ED via EMS due to concern for UTI and sepsis. Patient has MS but is not currently on treatment for it. Patient was admitted for sepsis. OT has been ordered for patient. D/C needs TBD. CM will follow. Date Signed: 01/04/2018 02:23 PM Electronically Signed By:Nancy Nowak LCSW [facility] CM Progress Note CM Note CM Note Notes: Pt lives at [facility], with advanced MS and is dependent for all ADLs. Pt admitted for UTI. OT and COLD ROLL OPERATOR are recommending return to SNF. Referral has been sent to [facility] and they have accepted. Discharge date unknown at this time. CM to follow. D/C Plan: Return to [facility] Date Signed: 01/06/2018 02:52 PM Electronically Signed By:Meliza Carballo Case Management Discharge Plan Note Case Management Discharge Discharge Order Complete? Answers: Yes Patient to Obtain Answers: Other Notes: [facility] Medications Transportation Arranged Answers: Other Notes: [employer] via [facility] Transport will Pick (Date 01/07/2018 01:15 PM & Time) Faxed Final Orders Answers: Yes Discharge Comments Notes: Patient discharged to her home at [facility]. Transport arranged by [facility] at . Orders sent. KELLEN Alejandro will call report. Date Signed: 01/07/2018 10:03 AM Electronically Signed By:Lenora Pete RN Intervention Information
--- NOTE | 2018-01-07 17:30 | GDS ---
DISCHARGE DIAGNOSES: 1. Sepsis. 2. Proteus urinary tract infection with bacteremia. 3. Leukocytosis. 4. Multiple sclerosis. Please see admission history and physical by Dr. Blanca Méndez. The patient presented with malaise, UTI, and sepsis. Urinalysis consistent with infection. Blood cultures grew out Proteus as did her u rine. She was seen by Infectious Disease, who kept her on ceftriaxone therapy. Based on new data, f ollowup cultures not necessary. It is simple gram-negative bacteremia, so they were not obtained. S he had a PICC line placed. She is discharged back to [facility] where she lives. /[id number]/MODL
== END 2018-01-07 13:48 | DRG 872 ==
LOC: EDUNIT# → F2N 22:59 → F3E 01-04 16:58
PROVIDERS: ADMIT Hospitalist; ATTEND Internal Medicine
PROC: 02HV33Z Insertion of Infusion Device into Superior Vena Cava, Percutaneous Approach (ICD-10-PCS; principal; 2018-01-06)
DX: A41.59 Other Gram-negative sepsis (principal); N39.0 Urinary tract infection, site not specified; N17.9 Acute kidney failure, unspecified; B96.4 Proteus (mirabilis) (morganii) as the cause of diseases classified elsewhere; G35 Multiple sclerosis; E03.9 Hypothyroidism, unspecified; R32 Unspecified urinary incontinence; R15.9 Full incontinence of feces; K59.00 Constipation, unspecified; Z85.3 Personal history of malignant neoplasm of breast; Z66 Do not resuscitate; Z23 Encounter for immunization
CPT/HCPCS: 92610-GN; 96365; 97165-GO; 97535-GO; C1751; G0008; G8987-GO-CM; G8988-GO-CL; G8996-GN-CI; G8997-GN-CI; G8998-GN-CI; J0696; J1650; J7613